=== PATIENT | male | born 1940 | race Caucasian/White ===

== ENCOUNTER 2020-11-11 22:40 | Emergency (ER) | payer MEDICARE, OTHER ==
[~2020-11-11] VITALS: Ht 157.5 cm; Wt 41.7 kg
--- NOTE | 2020-11-11 22:55 | NUR ---
PATIENT CASSIE 41 FROM [facility] FOR C/O LOW O2 SAT. PT ON O2 AT 5LPM VIA NC ON BASELINE. PATIENT A/OX2-3, PATIENT CONNECETED TO HAT LINING PASTER AND POX. RR EVEN, NO SIGNS OF SOB NOTED. VSS.
--- NOTE | 2020-11-11 23:14 | NUR ---
PATIENT ON N/C AT 4LPM, O2 STAT AT 94%
--- NOTE | 2020-11-12 | NUR ---
LISA IN BED RESTING, VSS, ON 4L N/C O2 94%.
--- NOTE | 2020-11-12 02:34 | NUR ---
[facility] ETA: 30-40 MIN
[2020-11-12 02:53] VITALS: BP 116/74
--- NOTE | 2020-11-12 03:58 | NUR ---
Patient discharged back to facility in stable condition. Written and verbal after care instructions given. Patient verbalizes understanding of instruction. Patient transported via ambulance.
== END 2020-11-12 03:58 ==
LOC: ER 22:40
DX: R06.02 Shortness of breath (principal); G93.40 Encephalopathy, unspecified; K21.9 Gastro-esophageal reflux disease without esophagitis; N40.0 Benign prostatic hyperplasia without lower urinary tract symptoms